=== PATIENT | female | born 1945 | race Caucasian/White ===

== ENCOUNTER 2016-07-16 09:50 | Day surgery (SDC) | payer MEDICARE ==
[~2016-07-16] VITALS: Ht 162.6 cm; Wt 105.3 kg
--- NOTE | 2016-07-23 06:27 | OR ---
ADMIT: 07/16/2016 RM/LOC: [facility] MR#: [id number] [id number] [place] [address] Operative/Delivery Room Report SEX: F AGE: 71 : 1945 SURGERY DATE: 07/16/2016 SURGEON: Drew Mcleod MD PREOPERATIVE DIAGNOSIS: Atypical ductal hyperplasia on biopsy, need for wide local excision. PROCEDURE: Right needle localizing lumpectomy. HEALTH PLAN MANAGER: GUIDO Jessica who was necessary for adequate exposure, retraction, and completion of this case. ANESTHESIA: General anesthesia. ESTIMATED BLOOD LOSS: 10 mL or less. SPECIMEN: To Radiology then path. INDICATION FOR PROCEDURE: Please see H and P. PROCEDURE IN DETAIL: After the risks, benefits, possible complications, and the alternatives had been explained, and informed consent had been obtained, the patient was taken back to the operating room, underwent general anesthesia, and the surgical field was prepped and draped in a sterile manner. She had already had a right breast guidewire placed in Radiology. I had gone and reviewed the films with the radiologist. I made an incision in the upper outer quadrant of the right breast down through the skin and subcutaneous tissue and then circumferentially dissected around the wire. I never saw the tip. [place] I got an adequate specimen and that will be sent. That was sent then to Radiology. Maintained hemostasis with electrocautery. Irrigated out the area with sterile water. Injected some 0.5% Marcaine for pain control and then closed with 3-0 Vicryl and 4-0 Monocryl. Tolerated the procedure well, was taken to recovery room in stable and satisfactory condition. Drew Mcleod MD/ [place] JOB #: [id number] CC: Drew Mcleod, Attending Physician Sloane Ken, Family Physician
== END 2016-07-16 16:00 | disposition home or self-care (01) ==
LOC: SSS 09:50 → RAD.S 10:40 → EDSTATUS 10:45 → SSS 10:45 → RAD.S 10:45 → SSS 16:00
PROC: 0HBT0ZZ Excision of Right Breast, Open Approach (ICD-10-PCS; principal; 2016-07-16)
DX: D05.11 Intraductal carcinoma in situ of right breast (principal); N60.91 Unspecified benign mammary dysplasia of right breast; E11.9 Type 2 diabetes mellitus without complications; E78.00 Pure hypercholesterolemia, unspecified; E03.9 Hypothyroidism, unspecified; I10 Essential (primary) hypertension; G47.30 Sleep apnea, unspecified; Z96.659 Presence of unspecified artificial knee joint; Z90.710 Acquired absence of both cervix and uterus; Z88.0 Allergy status to penicillin; Z79.899 Other long term (current) drug therapy; Z88.8 Allergy status to other drugs, medicaments and biological substances; Z90.49 Acquired absence of other specified parts of digestive tract